=== PATIENT | female | born 1985 | race Caucasian/White ===

== ENCOUNTER 2017-04-20 10:49 | Emergency (ER) | payer OTHER ==
[~2017-04-20] VITALS: Ht 152.4 cm; Wt 80.3 kg
[2017-04-20 10:52] VITALS: BP 168/99; Ht 152.4 cm; Wt 80.3 kg
== END 2017-04-20 12:55 | disposition home or self-care (01) ==
LOC: ED 10:49
DX: N20.0 Calculus of kidney (principal); R31.9 Hematuria, unspecified
CPT/HCPCS: J1885